=== PATIENT | male | born 1980 | race Caucasian/White ===

== ENCOUNTER 2018-09-04 23:30 | Emergency (ER) | payer SELFPAY ==
[~2018-09-04] VITALS: Ht 170.2 cm; Wt 102.1 kg
[2018-09-04 23:36] VITALS: BP 140/80; PULSE 77; RESP 18; Ht 170.2 cm; Wt 102.1 kg
[2018-09-05] MEDS ORDERED: POLY10DR19 LEFT EYE (03:36)
--- NOTE | 2018-09-05 03:42 | ERD ---
ER Documentation Chief Complaint Chief Complaint right eye pain/redness, was welding/grinding metal 2 days ago HPI 37-year-old male no significant past medical history presents for right eye redness and pain x2 days. He states that he was welding some metal for work and subsequent of the pain. He thought that the pain would go away however the pain continues. He admits to a 6 out of 10 pain. No treatment tried at home. No other modifying factors noted. ROS All systems reviewed and are negative except as per history of present illness. Medications Home Meds Active Scripts Polymyxin B Sulfate-TMP* (Polymyxin B-TMP Eye Drops*) 10 Ml Drops, 1 DROP LEFT EYE QID for eye infection for 7 Days, #1 BOTTLE Prov:PETRONA QUINTANILLA DO 09/05/18 Allergies Allergies: Coded Allergies: No Known Drug Allergies (Verified Allergy, Unknown, 09/04/18) PMhx/Soc Medical and Surgical Hx: pt denies Surgical Hx History of Surgery: No Anesthesia Reaction: No Hx Neurological Disorder: No Hx Respiratory Disorders: No Hx Cardiac Disorders: Yes (HLD) Hx Psychiatric Problems: No Hx Miscellaneous Medical Probl: No Hx Alcohol Use: No Hx Substance Use: No Hx Tobacco Use: Yes Smoking Status: Current every day smoker FmHx Family History: No coronary disease Physical Exam Vitals Vital Signs Date Temp Pulse Resp B/P (MAP) Pulse Ox O2 O2 Flow FiO2 Time Delivery Rate 09/04/18 97.3 77 18 140/80 98 23:36 (100) Physical Exam Const: No acute distress Head: Atraumatic Eyes: Right conjunctiva with some redness, there is multiple small particles noted in the cornea ENT: Normal External Ears, Nose and Mouth. Neck: Full range of motion. No meningismus. Resp: Clear to auscultation bilaterally Cardio: Regular rate and rhythm, no murmurs Skin: No petechiae or rashes Ext: No cyanosis, or edema Neur: Awake and alert Psych: Normal Mood and Affect Procedures/MDM Medical Decision Making: Differential diagnosis includes but not limited to conjunctivitis, corneal ulcer, corneal foreign body Patient appeared well on physical exam. The right eye was noted to be erythematous over the conjunctiva Multiple small particles noted over the right cornea The eye was irrigated, attempt to remove the parietal with cotton swab unsuccessful 2 small pieces of metal removed from the right cornea with a 25-gauge needle There is one particle that was a little bit deeper and was unable to be removed. Patient given prescription for antibiotic eyedrop. Patient advised that he will need follow-up with ophthalmology. Information for follow-up given to patient. Patient advised to follow up with PCP in 1-2 days. Patient advised to return to ED for new or worsening symptoms. Patient stable on discharge from the ED. Disclaimer: Inadvertent spelling and grammatical errors are likely due to EHR/dictation software use and do not reflect on the overall quality of patient care. Also, please note that the electronic time recorded on this note does not necessarily reflect the actual time of the patient encounter. Departure Diagnosis: Primary Impression: Corneal foreign body Encounter type: initial encounter Laterality: right Qualified Codes: T15.01XA - Foreign body in cornea, right eye, initial encounter Condition: Fair Patient Instructions: Corneal Foreign Body, Removed Referrals: [facility] YOU HAVE RECEIVED A MEDICAL SCREENING EXAM AND THE RESULTS INDICATE THAT YOU DO NOT HAVE A CONDITION THAT REQUIRES URGENT TREATMENT IN THE EMERGENCY DEPARTMENT. FURTHER EVALUATION AND TREATMENT OF YOUR CONDITION CAN WAIT UNTIL YOU ARE SEEN IN YOUR DOCTORS OFFICE WITHIN THE NEXT 1-2 DAYS. IT IS YOUR RESPONSIBILITY TO MAKE AN APPOINTMENT FOR FOLOW-UP CARE. IF YOU HAVE A PRIMARY DOCTOR --you should call your primary doctor and schedule an appointment IF YOU DO NOT HAVE A PRIMARY DOCTOR YOU CAN CALL OUR PHYSICIAN REFERRAL HOTLINE AT IF YOU CAN NOT AFFORD TO SEE A PHYSICIAN YOU CAN CHOSE FROM THE FOLLOWING [facility] [address] [facility] [address] [facility] [facility] [address] [facility] [address] [facility] [address] [facility]. [facility] [address] [facility] [address] Hours: Mon - Fri 9:00 AM - 5:00 PM Additional Instructions: Call your primary care doctor TOMORROW for an appointment during the next 1-2 days.See the doctor sooner or return here if your condition worsens before your appointment time. Needs to follow up with ophthalmology PETRONA QUINTANILLA DO September 05, 2018 03:42
== END 2018-09-05 03:44 | disposition home or self-care (01) ==
LOC: FTE 23:30
DX: T15.01XA Foreign body in cornea, right eye, initial encounter (principal); F17.210 Nicotine dependence, cigarettes, uncomplicated; X58.XXXA Exposure to other specified factors, initial encounter; Y92.9 Unspecified place or not applicable